=== PATIENT | male | born 1955 | race Caucasian/White ===

== ENCOUNTER 2020-08-07 13:55 | Emergency (ER) | payer OTHER ==
[2020-08-07 14:39] LABS: Urine Blood Trace-lysed (Negative); Urine Glucose Negative (Negative); Urine Protein Negative (Negative); Urine Specific Gravity 1.015 (1.005-1.030); Urine pH 5.5 (5.0-7.0)
[2020-08-07 14:41] LABS: Absolute Lymphocytes (CBC) 1.1 K/uL (0.7-4.9); Basophils % 1.7 % (0-1.3); Hematocrit 33.3 % (39.6-49.0); Lymphocytes % 27.4 % (15.3-44.8); RBC Red Blood Cell Count 4.27 M/uL (4.33-5.43)
[2020-08-07 14:59] LABS: Albumin 3.8 g/dL (3.4-5.0); Bilirubin Direct 0.1 mg/dL (0-0.2); Bilirubin Total 0.4 mg/dL (0.2-1.0); Magnesium 2.5 mg/dL (1.8-2.4); Potassium 4.1 mmol/L (3.5-5.1); Protein, Total 7.9 g/dL (6.4-8.2)
[2020-08-07 15:00] LABS: Urine Bacteria <20 /HPF (NONE SEEN); Urine RBC <5 /HPF (NONE SEEN)
[2020-08-07] MEDS ORDERED: NA CHLORIDE 0.9% 1,000 ML ONE (15:35)
--- NOTE | 2020-08-07 16:49 | RAD REPORT ---
EXAM DESCRIPTION: CT - Abdomen Pelvis Wo Contrast - 08/07/2020 4:15 pm CLINICAL HISTORY: right side abdomen pain , history of gastric carcinoma, history prostate cancer COMPARISON: No comparisons TECHNIQUE: Axial [address] imaging of the abdomen and pelvis was performed without IV contrast. No IV contrast was given because of allergy, abnormal renal function, patient refusal or physician re quest. No oral contrast administered. All CT scans are performed using dose optimization technique as appropriate and may include automated exposure control or mA/KV adjustment according to patient size. FINDINGS: No suspicious findings in the lung bases. Spleen is normal in size. Several round low-density masses scattered in liver parenchyma. Largest is in the subcapsular dome right lobe 17 mm in size. These are probably incidental cysts. However, in a patient with a malignant history, a more aggressive process cannot be excluded. These are not fully c haracterized on noncontrast imaging and no comparison studies available. Spleen and pancreas show no suspicious findings. Multiple gallstones are present near the neck of the contracted gallbladder. No acute gallbladder process suspected. No biliary tree dilatation. Patient has a 6-7 mm distal right ureteral calculus 1 centimeter from the UVJ. There is mild right-si ded hydronephrosis. No left-sided hydronephrosis. No other obstructing or nonobstructing calculi. No significant adrenal finding. Isodense renal masses and pyelonephritis cannot be excluded in the abse nce of IV contrast. Urinary bladder is tightly contracted which accentuates wall thick No dilated bowel loops or bowel wall thickening. Surgical changes in the gastric antrum region show n o associated mass or wall thickening. No adjacent lymphadenopathy. Appendix is normal. No free air, f ree fluid or inflammatory stranding. No hernia, mass or bulky lymphadenopathy. No suspicious bony findings. IMPRESSION: Minimal right-sided hydronephrosis secondary to a 6-7 mm distal right ureteral calculus 1 centimeter from the bladder. No other obstructing or nonobstructing calculi. Multi stone cholelithiasis without evidence for an acute gallbladder or biliary tree process. Multiple rounded low-density masses of the liver from a few mm to 17 mm in size. These are most likel y simple cysts but are not fully characterized on noncontrast imaging. Given the patient's malignant history, metastatic disease is not excluded but felt to be unlikely. Full assessment is limited is the absence of IV contrast.
--- NOTE | 2020-08-07 17:12 | ER ---
Nurse's Notes [facility] Name: Gilma Up Age: 65 yrs Sex: Male : 1955 Arrival Date: 08/07/2020 Time: 13:57 Bed 17 Private MD: John Aguilar Diagnosis: Calculus of ureter-right Presentation: 08/07 14:02 Chief complaint: Patient states: "I've got this pain that seems like it starts in my ss right hip and it raps around to my lower abd. When it happens, I feel all bloated up." Pt describes the pain as a "cramp" and has been intermittent since July 28. Coronavirus screen: Client denies travel out of the [place] in the last 14 days. Ebola Screen: Patient denies exposure to infectious person. Patient denies travel to an Ebola-affected area in the 21 days before illness onset. Initial Sepsis Screen: Does the patient meet any 2 criteria? No. Patient's initial sepsis screen is negative. Does the patient have a suspected source of infection? No. Patient's initial sepsis screen is negative. Risk Assessment: Do you want to hurt yourself or someone else? Patient reports no desire to harm self or others. Onset of symptoms was July 28, 2020. 14:02 Method Of Arrival: Ambulatory ss 14:02 Acuity: LEEANNE 3 ss Historical: - Allergies: 14:04 PENICILLINS; ss - PMHx: 14:04 High Cholesterol; Stomach CA; Prostate CA; ss - PSHx: 14:04 Prostatectomy; Hernia repair; ss - Immunization history:: Adult Immunizations up to date. - Social history:: Smoking status: Patient denies any tobacco usage or history of. Screenin:24 Abuse screen: Denies threats or abuse. Nutritional screening: No deficits noted. jd3 Tuberculosis screening: No symptoms or risk factors identified. Fall Risk IV access (20 points). Ambulatory Aid- None/Bed Rest/Nurse Assist (0 pts). Gait- Normal/Bed Rest/Wheelchair (0 pts) Mental Status- Oriented to own ability (0 pts). Total [place] Fall Scale indicates No Risk (0-24 pts). Assessment: 15:23 General: Appears in no apparent distress. comfortable, Behavior is calm, cooperative, jd3 appropriate for age. Pain: Complains of pain in right flank Pain radiates to abdomen Quality of pain is described as aching. Neuro: Level of Consciousness is awake, alert, obeys commands, Oriented to person, place, time, situation. Cardiovascular: Denies chest pain, Capillary refill < 3 seconds Patient's skin is warm and dry. Respiratory: Airway is patent Respiratory effort is even, unlabored, Respiratory pattern is regular, symmetrical, Denies cough, shortness of breath. GI: Abdomen is round non-distended, Abd is soft and non tender X 4 quads. Reports lower abdominal pain. : No signs and/or symptoms were reported regarding the genitourinary system. EENT: No signs and/or symptoms were reported regarding the EENT system. Derm: Skin is intact, Skin is dry, Skin is normal, Skin temperature is warm. Musculoskeletal: Circulation, motion, and sensation intact. Range of motion: intact in all extremities. 16:27 Reassessment: Patient appears in no apparent distress at this time. No changes from jd3 previously documented assessment. Patient and/or family updated on plan of care and expected duration. Pain level reassessed. Patient is alert, oriented x 3, equal unlabored respirations, skin warm/dry/pink. 18:45 Reassessment: Patient appears in no apparent distress at this time. Patient and/or jd3 family updated on plan of care and expected duration. Pain level reassessed. Patient is alert, oriented x 3, equal unlabored respirations, skin warm/dry/pink. even and steady gait upon discharge Patient states feeling better. Vital Signs: 14:02 BP 165 / 90; Pulse 80; Resp 16; Temp 97.8(TE); Pulse Ox 99% on R/A; Weight 114.76 kg; ss Height 5 ft. 10 in. (177.80 cm); Pain 0/10; 15:25 Pulse 79; Resp 16 S; Pulse Ox 99% on R/A; jd3 18:00 BP 150 / 87; Pulse 80; Resp 16 S; Pulse Ox 99% on R/A; jd3 14:02 Body Mass Index 36.30 (114.76 kg, 177.80 cm) ED Course: 13:57 Patient arrived in ED. mr 13:58 Shady Aguilar MD is Private Physician. mr 13:58 John Aguilar DO is Private Physician. mr 14:03 Triage completed. ss 14:04 Arm band placed on left wrist. ss 14:07 Chuck Martinez PA is PSYCHIATRICP. cp 14:07 Chuck Camarena MD is Attending Physician. cp 14:07 Rajendra Salazar, CLARISSA is Primary Nurse. jd3 14:43 Initial lab(s) drawn, by me, sent to lab. Inserted saline lock: 20 gauge in right iw antecubital area, using aseptic technique. Blood collected. 15:24 Patient has correct armband on for positive identification. Bed in low position. Call jd3 light in reach. Side rails up X 1. Adult w/ patient. Pulse ox on. NIBP on. 16:15 Abdomen In Process Unspecified. EDMS 17:11 Roosevelt Lebron MD is Referral Physician. cp 18:47 IV discontinued, bleeding controlled, Pressure dressing applied. mb4 18:47 No provider procedures requiring assistance completed. jd3 18:47 IV discontinued, intact, bleeding controlled, No redness/swelling at site. Pressure jd3 dressing applied. Administered Medications: 15:22 Drug: NS 0.9% 500 ml Route: IV; Rate: bolus; Site: right antecubital; jd3 16:20 Follow up: Response: No adverse reaction; IV Status: Completed infusion; IV Intake: jd3 500ml 15:22 Drug: NS 0.9% 500 ml Route: IV; Rate: 100 ml/hr; Site: right antecubital; jd3 18:40 Follow up: Response: No adverse reaction; IV Status: Order to discontinue infusion jd3 17:48 Drug: Magnesium Sulfate 1 grams Route: IVPB; Infused Over: 1 hrs; Site: right jd3 antecubital; 18:40 Follow up: Response: No adverse reaction; IV Status: Completed infusion jd3 17:48 Drug: Flomax (tamsulosin) 0.4 mg Route: PO; jd3 18:40 Follow up: Response: No adverse reaction jd3 Intake: 16:20 IV: 500ml; Total: 500ml. jd3 Outcome: 17:12 Discharge ordered by . cp 18:55 Patient left the ED. jd3 18:55 Discharged to home ambulatory, with family. 18:55 Condition: stable 18:55 Discharge instructions given to patient, family, Instructed on discharge instructions, follow up and referral plans. medication usage, Demonstrated understanding of instructions, follow-up care, medications, Prescriptions given X 4. Signatures: Dispatcher [employer] [facility] Maritza Teran Jessica Baires, RN Kandis Rodney RN RN ss Page, Corey, PA PA cp Davies, Jonathon, RN RN jd3 Baxter, Mackenzie mb4 Corrections: (The following items were deleted from the chart) 19: 19:18 No provider procedures requiring assistance completed. jd3 jd3 19:18 Condition: stable jd3 jd3 19:18 Discharged to home ambulatory, with family, j jd3 20 19:18 Discharge instructions given to patient, family, Instructed on discharge j instructions, follow up and referral plans. medication usage, Demonstrated understanding of instructions, follow-up care, medications, Prescriptions given X 4, jd3 : 19:19 Patient left the ED. jd3 jd3
--- NOTE | 2020-08-07 17:12 | EDPHYS ---
Physician Documentation [facility] Name: Gilma Up Age: 65 yrs Sex: Male : 1955 Arrival Date: 08/07/2020 Time: 13:57 Bed 17 Private MD: Jeff [facility] ED Physician Chuck Camarena HPI: 08/07 14:30 This 65 yrs old Male presents to ER via Ambulatory with complaints of cp Abdominal Pain, Back Pain. 14:30 The patient presents with abdominal pain right flank. cp 14:30 Onset: The symptoms/episode began/occurred 10 day(s) ago. The symptoms radiate to right cp hip. 14:30 Associated signs and symptoms: Pertinent negatives: nausea and vomiting, constipation, cp diarrhea, dysuria, fever. The symptoms are described as intermittent. Historical: - Allergies: 14:04 PENICILLINS; ss - PMHx: 14:04 High Cholesterol; Stomach CA; Prostate CA; ss - PSHx: 14:04 Prostatectomy; Hernia repair; ss - Immunization history:: Adult Immunizations up to date. - Social history:: Smoking status: Patient denies any tobacco usage or history of. ROS: 14:35 Constitutional: Negative for body aches, chills, fever, poor PO intake. cp 14:35 Eyes: Negative for injury, pain, redness, and discharge. cp 14:35 ENT: Negative for ear pain, sore throat, difficulty swallowing, difficulty handling secretions. 14:35 Cardiovascular: Negative for chest pain, palpitations. 14:35 Respiratory: Negative for cough, shortness of breath, wheezing. 14:35 Abdomen/GI: Negative for nausea, vomiting, and diarrhea. 14:35 Back: Positive for flank pain, on the right. 14:35 Skin: Negative for rash. 14:35 Neuro: Negative for altered mental status, headache, weakness. 14:35 All other systems are negative. Exam: 14:45 Constitutional: The patient appears in no acute distress, alert, awake, non-toxic, well cp developed, well nourished. 14:45 Head/Face: Normocephalic, atraumatic. cp 14:45 Eyes: Periorbital structures: appear normal, Conjunctiva: normal, no exudate, no cp injection, Sclera: no appreciated abnormality, Lids and lashes: appear normal, bilaterally. 14:45 ENT: External ear(s): are unremarkable, Nose: is normal, Mouth: Lips: moist, Oral mucosa: moist, Posterior pharynx: Airway: no evidence of obstruction, patent. 14:45 Chest/axilla: Inspection: normal, Palpation: is normal, no crepitus, no tenderness. 14:45 Cardiovascular: Rate: normal, Rhythm: regular. 14:45 Respiratory: the patient does not display signs of respiratory distress, Respirations: normal, no use of accessory muscles, no retractions, labored breathing, is not present, Breath sounds: are clear throughout, no decreased breath sounds. 14:45 Abdomen/GI: Inspection: abdomen appears normal, Bowel sounds: active, all quadrants, Palpation: soft, in all quadrants, nontender, in all quadrants, rebound tenderness, is not appreciated, voluntary guarding, is not appreciated, involuntary guarding, is not appreciated. 14:45 Back: CVA tenderness, is absent. 14:45 Skin: no rash present. 14:45 Neuro: Orientation: to person, place \T\ time. Mentation: is normal, Motor: moves all cp fours, strength is normal, Sensation: is normal, Gait: is steady, at a normal pace, without difficulty. Vital Signs: 14:02 BP 165 / 90; Pulse 80; Resp 16; Temp 97.8(TE); Pulse Ox 99% on R/A; Weight 114.76 kg; ss Height 5 ft. 10 in. (177.80 cm); Pain 0/10; 15:25 Pulse 79; Resp 16 S; Pulse Ox 99% on R/A; jd3 18:00 BP 150 / 87; Pulse 80; Resp 16 S; Pulse Ox 99% on R/A; jd3 14:02 Body Mass Index 36.30 (114.76 kg, 177.80 cm) ss MDM: 14:17 Patient medically screened. cp 15:00 Differential diagnosis: cholecystitis, Cholelithiasis, Ureterolithiasis, urinary tract cp infection. 17:10 Data reviewed: vital signs, nurses notes, lab test result(s), radiologic studies, CT cp scan. 17:10 ED course: Review to [facility] prescription monitor program negative for any cp results. 17:11 Counseling: I had a detailed discussion with the patient and/or guardian regarding: the cp historical points, exam findings, and any diagnostic results supporting the discharge/admit diagnosis, lab results, radiology results, the need for outpatient follow up, a urologist, to return to the emergency department if symptoms worsen or persist or if there are any questions or concerns that arise at home. 08/07 14:22 Order name: Basic Metabolic Panel 08/07 14:22 Order name: CBC with Diff 08/07 14:22 Order name: Hepatic Function 08/07 14:22 Order name: Lipase 08/07 14:22 Order name: Urine Microscopic Only 08/07 14:22 Order name: PT-INR; Complete Time: 16:07 08/07 14:22 Order name: Magnesium; Complete Time: 16:07 08/07 14:23 Order name: Basic Metabolic Panel; Complete Time: 16:07 EDAK 08/07 16:59 Interpretation: Normal except: CL 111; CRE 1.53; GFR 46. 08/07 14:23 Order name: CBC with Automated Diff; Complete Time: 16:07 EDAK 08/07 17:05 Interpretation: Normal except: WBC 3.90; RBC 4.27; HGB 10.3; HCT 33.3; MCV 78.0; MCH cp 24.2; MCHC 31.1; RDW 15.8; BASO% 1.7. 08/07 14:23 Order name: Liver (Hepatic) Function; Complete Time: 16:07 EDMS 08/07 14:23 Order name: Lipase; Complete Time: 16:07 EDAK 08/07 14:23 Order name: Urine Microscopic Only; Complete Time: 16:07 EDAK 08/07 14:39 Order name: Urine Dipstick-Ancillary; Complete Time: 16:07 EDAK 08/07 14:22 Order name: IV Saline Lock; Complete Time: 14:40 08/07 14:22 Order name: Labs collected and sent; Complete Time: 14:40 08/07 14:22 Order name: Urine Dipstick-Ancillary (obtain specimen); Complete Time: 14:40 08/07 16:11 Order name: Abdomen ; Complete Time: 16:58 EDMS Administered Medications: 15:22 Drug: NS 0.9% 500 ml Route: IV; Rate: bolus; Site: right antecubital; jd3 16:20 Follow up: Response: No adverse reaction; IV Status: Completed infusion; IV Intake: jd3 500ml 15:22 Drug: NS 0.9% 500 ml Route: IV; Rate: 100 ml/hr; Site: right antecubital; jd3 18:40 Follow up: Response: No adverse reaction; IV Status: Order to discontinue infusion jd3 17:48 Drug: Magnesium Sulfate 1 grams Route: IVPB; Infused Over: 1 hrs; Site: right jd3 antecubital; 18:40 Follow up: Response: No adverse reaction; IV Status: Completed infusion jd3 17:48 Drug: Flomax (tamsulosin) 0.4 mg Route: PO; jd3 18:40 Follow up: Response: No adverse reaction jd3 Disposition: 08/08 07:24 Co-signature as Attending Physician, Chuck Camarena MD I agree with the assessment and candy plan of care. Disposition: 08/07/20 17:12 Discharged to Home. Impression: Calculus of ureter - right. - Condition is Stable. - Discharge Instructions: Kidney Stones, Renal Colic. - Prescriptions for Cipro 250 mg Oral Tablet - take 1 tablet by ORAL route every 12 hours for 7 days; 14 tablet. Zofran 4 mg Oral Tablet - take 1 tablet by ORAL route every 12 hours As needed; 20 tablet. Flomax 0.4 mg Oral Capsule, Sust. Release 24 hr - take 1 capsule by ORAL route once daily As needed 1/2 hour following the same meal each day; 5 capsule. Tramadol 50 mg Oral Tablet - take 1 tablet by ORAL route every 8 hours as needed; 20 tablet. - Medication Reconciliation Form, Thank You Letter, Antibiotic Education, Prescription Opioid Use form. - Follow up: Roosevelt Lebron MD; When: 1 - 2 days; Reason: Recheck today's complaints. - Problem is new. - Symptoms have improved. Signatures: Dispatcher [employer] EDAK Chuck Camarena MD MD cha Smirch, Shelby, RN RN ss Chuck Martinez PA PA cp Davies, Jonathon, RN RN jd3 Corrections: (The following items were deleted from the chart) 08/07 16:11 14:23 Abdomen Pelvis W Con+CT.RAD.BRZ ordered. EDAK EDMS 19:19 17:12 08/07/2020 17:12 Discharged to Home. Impression: Calculus of ureter - right. jd3 Condition is Stable. Forms are Medication Reconciliation Form, Thank You Letter, Antibiotic Education, Prescription Opioid Use. Follow up: Roosevelt Lebron; When: 1 - 2 days; Reason: Recheck today's complaints. Problem is new. Symptoms have improved. cp
[2020-08-07] MEDS ORDERED: TAMSULOSIN 0.4 MG SR CAP ONE (17:31)
[2020-08-07] MEDS ORDERED: MAGNESIUM SULFATE 1 gm IVPB 1 GM/100 ML BAG IV ONE (17:31)
[2020-08-07 19:39] VITALS: TEMP 97.8; O2SAT 99
[2020-08-07 19:43] VITALS: BP 150/87
== END 2020-08-07 19:19 | disposition home or self-care (01) ==
LOC: ER 13:55
DX: N20.1 Calculus of ureter (principal); Z88.0 Allergy status to penicillin; Z85.46 Personal history of malignant neoplasm of prostate; Z85.038 Personal history of other malignant neoplasm of large intestine
CPT/HCPCS: 85025; 80048; 36415; 83735; 85610; 80076; 83690; 74176; J3475; J7030; 81003; 81015; 96361; 96365; 99284